=== PATIENT | male | born 1970 | race Caucasian/White ===

== ENCOUNTER 2016-10-30 13:00 | Emergency (ER) | payer SELFPAY ==
[~2016-10-30] VITALS: Ht 180.3 cm; Wt 80.0 kg
[2016-10-30 13:12] VITALS: BP 112/69
[2016-10-30] MEDS ORDERED: HYDROcodone/APAP 5/325 TABLET PO ONE (14:30)
[2016-10-30] MEDS ORDERED: HYDROcodone/APAP 5/325 TABLET ONE (14:33)
== END 2016-10-30 15:06 | disposition home or self-care (01) ==
LOC: ED 14:45
DX: M25.532 Pain in left wrist (principal); F17.210 Nicotine dependence, cigarettes, uncomplicated
CPT/HCPCS: 29125; 99284